=== PATIENT | female | born 1970 | race Asian ===

== ENCOUNTER → 2019-03-26 11:47 | Outpatient (CLI) | payer BC, SELFPAY ==
--- NOTE | 2019-03-26 | DI.RAD.S_ITS ---
PROCEDURE: XR THORACIC SPINE 3V INDICATIONS: T SPINE PAIN TECHNIQUE: 3 views of the thoracic spine were acquired. COMPARISON: None. FINDINGS: Bones: No fractures or dislocations. No suspicious bony lesions. Multilevel degenerative endplate sclerosis and spurring. Diffuse facet arthropathy. Soft tissues: No paravertebral stripe thickening. IMPRESSION: No fracture. Dictated by: Jamie Arias M.D. on 03/26/2019 at 14:16 Approved by: Jamie Arias M.D. on 03/26/2019 at 14:18
== END ==
PROVIDERS: Visit Provider Internal Medicine
DX: M54.6 Pain in thoracic spine (principal)
CPT/HCPCS: 72072

== ENCOUNTER → 2023-09-07 15:41 | Outpatient (CLI) | payer OTHER, SELFPAY ==
--- NOTE | 2023-09-07 15:42 | DI.RAD.S_ITS ---
PROCEDURE: XR ANKLE RT MIN 3V INDICATIONS: Right lower leg pain TECHNIQUE: 3 views of the ankle were acquired. COMPARISON: None. FINDINGS: Bones: No fractures or dislocations. Ankle mortise is normally aligned. No suspicious bony lesions. Soft tissues: No tibiotalar joint effusion. Achilles tendon appears normal. IMPRESSION: No acute bony abnormality or significant effusion. Dictated by: Agusto Briceno M.D. on 09/07/2023 at 16:33 Approved by: Agusto Briceno M.D. on 09/07/2023 at 16:33
--- NOTE | 2023-09-07 15:42 | DI.RAD.S_ITS ---
PROCEDURE: XR TIBIA FUBULA RT 2V INDICATIONS: Right lower leg pain TECHNIQUE: 2 views of the tibia and fibula were acquired. COMPARISON: None. FINDINGS: Bones: No fractures or dislocations. No suspicious bony lesions. Soft tissues: No suspicious soft tissue calcifications or masses. IMPRESSION: No acute bony abnormality. Dictated by: Agusto Briceno M.D. on 09/07/2023 at 16:32 Approved by: Agusto Briceno M.D. on 09/07/2023 at 16:33
== END ==
PROVIDERS: Referring Provider Nurse Practitioner Family; Visit Provider Nurse Practitioner Family
DX: S89.91XA Unspecified injury of right lower leg, initial encounter (principal); X58.XXXA Exposure to other specified factors, initial encounter
CPT/HCPCS: 73590; 73610

== ENCOUNTER 2024-12-25 19:03 | Emergency (ER) | payer OTHER, SELFPAY ==
[2024-12-25 19:07] VITALS: BP 177/88; PULSE 78; RESP 16; TEMP 36.8; O2SAT 97; BMI 22.8
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
--- NOTE | 2024-12-25 19:16 | PC.NURSE ---
Pt denies wanting ibuprofen/tyelonal or ice in triage
--- NOTE | 2024-12-25 19:17 | PC.NURSE ---
Radial pulses 2+ bilaterally.
[2024-12-25] MEDS: ACETAMINOPHEN 325 MG TABLET 975 MG PO (20:33)
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
[2024-12-25 22:24] VITALS: BP 173/93; PULSE 55; O2SAT 100
[2024-12-25 22:30] VITALS: PULSE 54; O2SAT 98
[2024-12-25 22:31] VITALS: BP 146/78; PULSE 54; O2SAT 98
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
== END 2024-12-25 22:59 | disposition home or self-care (01) ==
PROVIDERS: Emergency Provider Emergency Medicine
DX: S43.401A Unspecified sprain of right shoulder joint, initial encounter (principal); V89.2XXA Person injured in unspecified motor-vehicle accident, traffic, initial encounter
CPT/HCPCS: 73030; 99283

== ENCOUNTER → 2024-12-28 15:45 | Outpatient (CLI) | payer OTHER, SELFPAY ==
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
== END ==
PROVIDERS: Referring Provider Chiropractor; Visit Provider Chiropractor
DX: S39.012A Strain of muscle, fascia and tendon of lower back, initial encounter (principal); M51.369 Other intervertebral disc degeneration, lumbar region without mention of lumbar back pain or lower extremity pain; X58.XXXA Exposure to other specified factors, initial encounter
CPT/HCPCS: 72110